=== PATIENT | female | born 1955 | race Caucasian/White ===

== ENCOUNTER → 2020-10-08 15:46 | Outpatient (BNVA) | payer MEDICAID, SELFPAY | PROVIDERS: Visit Provider Internal Medicine Cardiovascular Disease | DX: E78.5 Hyperlipidemia, unspecified (principal); R07.9 Chest pain, unspecified; I63.9 Cerebral infarction, unspecified; I10 Essential (primary) hypertension; G47.30 Sleep apnea, unspecified | CPT/HCPCS: 80053; 80061; 85025 ==

== ENCOUNTER 2021-06-27 14:39 | Outpatient (CLI) | payer MEDICARE, MEDICAID, SELFPAY ==
--- NOTE | 2021-06-27 14:57 | MM_ITS ---
WS: [id number] SCREENING DIGITAL MAMMOGRAM WITH CAD HISTORY: SCREENING COMPARISON: 12/19/2018 Bilateral CC and MLO views submitted. Computer aided detection analyzed. Breast composition: The breasts are heterogeneously dense, which may obscure small masses. Increased asymmetry in the retromammary fat in the superior breast on the RIGHT seen only on the MLO projection . There is an additional 5 mm nodule in the medial LEFT breast which is probably at the nipple line. This nodule may have been present on prior studies but better seen today due to involution of breast tissue. There are benign vascular calcifications. MM/[place] [id number] IMPRESSION: BI-RADS: 0-Incomplete: Need additional imaging evaluation FOLLOW UP: Need Additional Imaging RIGHT breasts: Spot compression views (MLO). Exaggerated lateral CC. True ML. U ltrasound to follow if abnormality persists. LEFT breast: Spot compression views (CC and MLO). True ML. Ultrasound to follow if abnormality persists.
== END 2021-06-27 14:40 | disposition home or self-care (01) ==
LOC: RADSHAW 14:54
PROVIDERS: PCP Family Medicine; Visit Provider Family Medicine
DX: Z12.31 Encounter for screening mammogram for malignant neoplasm of breast (principal)
CPT/HCPCS: 77067

== ENCOUNTER 2021-07-24 14:27 | Outpatient (CLI) | payer MEDICARE, MEDICAID, SELFPAY ==
--- NOTE | 2021-07-24 14:37 | MM_ITS ---
WS: [id number] Bilateral diagnostic mammogram, 07/24/2021 Clinical Data: ABNORMAL MAMMOGRAM Comparison: 06/27/2021, 12/19/2018, 10/08/2009, 01/06/2007, 12/22/2005. Findings: Compression view of the right breast in MLO projection reveals only normal breast tissue. No spiculat ed masses or clustered calcifications are seen. There are no abnormal densities. Compression views of the left breast in the CC and MLO projections demonstrate there is a tiny 0.3 cm nodule in the medial aspect of the left breast. This is not localized on the MLO view but seen only on the cc view. MM/[place] [id number] Impression: 1. Negative right breast. 2. Probable benign tissue medial aspect left breast and left breast ultrasound will be performed.
--- NOTE | 2021-07-24 14:37 | US_ITS ---
WS: [id number] Left breast ultrasound, 07/24/2021 Clinical Data: ABNORMAL MAMMOGRAM Comparison: Mammogram, 07/24/2021 Findings: At the 11:00 position in the left breast there were no abnormalities. No cysts or masses are seen. 2 cm from the nipple at the 1:00 position there was a simple cyst measuring 0.40 x 1.[address] likely this cyst does not correspond to the density noted on the mammogram. US/US breast LT limited* [id number] Impression: 1. Negative left breast with incidental cyst at 1:00. 2. Recommend annual screening mammograms BIRADS: 2-Benign FOLLOW UP: 1 Year Follow-up
== END 2021-07-24 14:28 | disposition home or self-care (01) ==
LOC: RADSHAW 14:33
PROVIDERS: PCP Family Medicine; Visit Provider Family Medicine
DX: R92.8 Other abnormal and inconclusive findings on diagnostic imaging of breast (principal)
CPT/HCPCS: 76642; 77066

== ENCOUNTER → 2022-06-05 09:15 | Outpatient (BNVA) | payer MEDICARE, MEDICAID, SELFPAY | PROVIDERS: PCP Family Medicine; Visit Provider Internal Medicine Cardiovascular Disease | DX: R07.9 Chest pain, unspecified (principal); I10 Essential (primary) hypertension; E78.5 Hyperlipidemia, unspecified; G47.30 Sleep apnea, unspecified; Z86.73 Personal history of transient ischemic attack (TIA), and cerebral infarction without residual deficits; F17.210 Nicotine dependence, cigarettes, uncomplicated | CPT/HCPCS: 99214 ==

== ENCOUNTER → 2022-07-21 15:07 | Outpatient (BNVA) | payer MEDICARE, MEDICAID, SELFPAY | PROVIDERS: PCP Family Medicine; Visit Provider Orthopaedic Surgery | DX: M17.11 Unilateral primary osteoarthritis, right knee (principal) | CPT/HCPCS: 20610; 99203 ==

== ENCOUNTER → 2023-06-15 14:40 | Outpatient (BNVA) | payer MEDICARE, MEDICAID, SELFPAY | PROVIDERS: PCP Family Medicine; Visit Provider Internal Medicine Cardiovascular Disease | DX: R06.02 Shortness of breath (principal); E78.5 Hyperlipidemia, unspecified; R07.9 Chest pain, unspecified; I20.1 Angina pectoris with documented spasm; E78.2 Mixed hyperlipidemia; I10 Essential (primary) hypertension; J44.9 Chronic obstructive pulmonary disease, unspecified; I63.9 Cerebral infarction, unspecified | CPT/HCPCS: 93005; 99214 ==

== ENCOUNTER 2023-07-15 07:38 | Outpatient (CLI) | payer MEDICARE, MEDICAID, SELFPAY ==
[2023-07-15 08:53] LABS: Alanine Aminotransferase 13 U/L (0-33); Albumin Level 3.9 g/dL (3.5-5.2); Alkaline Phosphatase 84 U/L (35-105); Aspartate Amino Transferase 18 U/L (0-32); Chol HDL Ratio 3.54 mg/dL (0.0-4.40); Cholesterol 276 mg/dL (0-200); Globulin 3.1 g/dL (1.3-4.6); HDL Cholesterol 78 mg/dL (60-100); LDL Cholesterol Calculated 181 mg/dL (50-129); LDL HDL Ratio 2.32 RATIO (0.00-3.22); Total Bilirubin 0.3 mg/dL (0.15-1.2); Triglycerides 84 mg/dL (0-150)
== END 2023-07-15 07:39 | disposition home or self-care (01) ==
LOC: LAB 07:38
PROVIDERS: PCP Family Medicine; Visit Provider Internal Medicine Cardiovascular Disease
DX: E78.5 Hyperlipidemia, unspecified (principal)
CPT/HCPCS: 36415; 80061; 80076

== ENCOUNTER → 2023-12-13 14:15 | Outpatient (BNVA) | payer MEDICARE, MEDICAID, SELFPAY | PROVIDERS: PCP Family Medicine; Visit Provider Internal Medicine Cardiovascular Disease | DX: R07.9 Chest pain, unspecified (principal); E78.2 Mixed hyperlipidemia; I10 Essential (primary) hypertension; I20.1 Angina pectoris with documented spasm; Z86.73 Personal history of transient ischemic attack (TIA), and cerebral infarction without residual deficits; Z72.0 Tobacco use | CPT/HCPCS: 99214 ==

== ENCOUNTER 2024-01-14 06:59 | Outpatient (CLI) | payer MEDICARE, MEDICAID, SELFPAY ==
--- NOTE | 2024-01-14 | ECG_ITS ---
[facility] Test Date: 2024-01-14 Pat Name: Janelle Trinidad Department: Room: Gender: Female Work Force Advisor: Casandra MitchellMayito : 1955 Requested By: Chuck Colindres Order Number: [id number] Urias MD: Elton Villela M.D. Interpretive Statements NAME OF STUDY: EXERCISE SESTAMIBI STRESS TEST INDICATION: [Chest Pain, ] EXERCISE DATA: The patient was exercised by Min protocol. Baseline heart rate was 62 beats per minute. Baseline blood pressure was 121/69 millimeters of mercury. Maximal predicted heart rate was 152 beats per minute. Maximum heart rate achieved was 131 which was 86% of the maximum predicted heart rate. Maximum blood pressure was 165/66 millimeters of mercury. Total exercise time was 4 minutes. Maximum METs achieved was 7. The reason for ending the test was maximal effort achieved. The patient complained of shortness of breath and dizziness/chest pain during the stress test, which then resolved at the end of the test. ELECTROCARDIOGRAM: BASELINE: Showed sinus rhythm, normal axis, no significant ST-T changes at the baseline noted. [] EXERCISE: At the peak exercise level, [] No significant ST-T changes suggestive of ischemia noted. [] RECOVERY: During the recovery period, heart rate dropped appropriately. No significant ST-T changes in the recovery suggestive of ischemia noted. [] CONCLUSION: 1. Exercise capacity is fair. 2. Heart rate response was appropriate. 3. Blood pressure response was appropriate. 4. Concerning symptoms of chest pain and shortness of breath during the testing 5. Electrocardiogram portion of the stress test was not suggestive of ischemia. 6. Nuclear scan will be documented separately. Electronically Signed On 01-16-2024 21:32:04 CDT by Elton Villela M.D. [id number]
[2024-01-14 07:20] VITALS: BMI 23.7
--- NOTE | 2024-01-14 07:22 | NMCV_ITS ---
NM maira perf SPECT r/s* [id number] Janelle Trinidad Age: 68 Gender: F : 1955 Exam Date: 01/14/2024 07:22 Ordering Phys: Chuck Colindres MD ([email or web address]) Technologist: PRO [place] Exam Location: [facility] Indications: CP STRESS TEST Please see separate stress test report in [facility] for full findings IMAGE PROTOCOL Rest/Stress 1 Radiopharmaceutical Dose (mCi) Administration Site Administered by Rest: Tc-99m 10.6 IV PRO [place] Sestamibi Stress:Tc-99m 32.5 IV PRO [place] Sestamiearl Rest: 14-Jan-2024 60 Discovery 630 Stress: 14-Jan-2024 30 Discovery 630 Radiopharmaceutical was injected at 85 % maximum heart rate. Images obtained in supine and prone position. SPECT RESULTS Technical Quality: Excellent Raw Data Analysis: Normal Image Corrections: No attenuation or motion correction applied Summed Stress Score: 0 Summed Rest Score: 0 Summed Difference Score: 0 PERFUSION FINDINGS SPECT images demonstrate homogeneous tracer distribution throughout the myocardium. FUNCTIONAL RESULTS (calculated via Gated SPECT) Stress Image LV EF (%): 80 Stress EDV (mL):55 TID: 0.77 Stress ESV (mL):11 FUNCTIONAL FINDINGS: There is normal left ventricular systolic function. IMPRESSIONS 1. Normal myocardial perfusion imaging with no evidence of ischemia. 2. LV systolic function is normal Elton Villela MD (Electronically Signed) Final Date: 14 January 2024 14:36 S
[2024-01-14 09:00] VITALS: BP 128/71; PULSE 83
== END 2024-01-14 07:00 | disposition home or self-care (01) ==
LOC: CDL 07:01
PROVIDERS: PCP Family Medicine; Visit Provider Internal Medicine Cardiovascular Disease
DX: R94.39 Abnormal result of other cardiovascular function study (principal); R07.9 Chest pain, unspecified
CPT/HCPCS: 36415; 78452; 93017; A9500

== ENCOUNTER → 2024-12-18 15:02 | Outpatient (BNVA) | payer OTHER, MEDICAID, SELFPAY | PROVIDERS: PCP Family Medicine; Visit Provider Internal Medicine Cardiovascular Disease | DX: R00.2 Palpitations (principal); I10 Essential (primary) hypertension; I20.1 Angina pectoris with documented spasm; Z79.82 Long term (current) use of aspirin; E78.2 Mixed hyperlipidemia; F17.210 Nicotine dependence, cigarettes, uncomplicated; Z86.73 Personal history of transient ischemic attack (TIA), and cerebral infarction without residual deficits | CPT/HCPCS: 99214 ==

== ENCOUNTER 2025-04-18 16:35 | Outpatient (CLI) | payer OTHER, MEDICAID, SELFPAY ==
--- NOTE | 2025-04-18 16:41 | CT_ITS ---
WS: [id number] LDCT LUNG CANCER SCREENING HISTORY: NICOTINE DEPENDENCE, CIGARETTES TECHNIQUE: Axial imaging performed from the apices to 1 cm below the costophrenic angles. Coronal and sagittal reformats are submitted with axial MIP series. All CT scans at [facility] use at least one of these dose optimization techniques: automated exposure control; mA and/or kV adjustment per patient size (includes targeted exams where dose is matched to clinical indication); or iterative reconstruction. DLP: 42.51 mGy.cm DIvol: Mean CTDIvol: 0.80 (mGy) COMPARISON: 04/10/2017 Diagnostic quality: Satisfactory Lungs: Biapical pleural thickening and fibrosis, greatest on the RIGHT. Increased AP diameter of the thorax. There are few scattered peripheral micronodules and calcified granulomata. No mass. No endobronchial lesions. Heart: Normal size heart with no pericardial effusion.. Other findings: Mediastinal and hilar lymph nodes are identified. These lymph nodes are numerous but small and very similar to 04/10/2017. Some of these lymph nodes contain calcifications. Mild atherosclerosis aorta. No adrenal mass. Increased thoracic kyphosis. Thoracic scoliosis. CT/CT lung screening [id number] IMPRESSION: LUNG-RADS: 2-Benign Appearance or Behavior FOLLOW UP: 12 Month: Continue annual screening with LDCT OTHER FINDINGS (S MODIFIER): None.
== END 2025-04-18 16:36 | disposition home or self-care (01) ==
PROVIDERS: PCP Family Medicine; Visit Provider Family Medicine
DX: Z12.2 Encounter for screening for malignant neoplasm of respiratory organs (principal); F17.210 Nicotine dependence, cigarettes, uncomplicated; J94.8 Other specified pleural conditions; J84.10 Pulmonary fibrosis, unspecified; R91.8 Other nonspecific abnormal finding of lung field; R93.5 Abnormal findings on diagnostic imaging of other abdominal regions, including retroperitoneum; I89.8 Other specified noninfective disorders of lymphatic vessels and lymph nodes; M40.294 Other kyphosis, thoracic region
CPT/HCPCS: 71271